=== PATIENT | female | born 1980 | race Caucasian/White ===

== ENCOUNTER 2017-02-27 08:51 | Emergency (ER) | payer OTHER ==
[2017-02-27 09:03] VITALS: BP 127/78; PULSE 58; TEMP 98.1; BMI 27.7
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
== END 2017-02-27 10:25 | disposition home or self-care (01) ==
LOC: JERFT 08:51
DX: S63.502A Unspecified sprain of left wrist, initial encounter (principal); S64.02XA Injury of ulnar nerve at wrist and hand level of left arm, initial encounter; Y04.2XXA Assault by strike against or bumped into by another person, initial encounter; Y93.F9 Activity, other caregiving; Y92.230 Patient room in hospital as the place of occurrence of the external cause; Y99.0 Civilian activity done for income or pay; Y07.9 Unspecified perpetrator of maltreatment and neglect
CPT/HCPCS: 73110-TC-LT; 99281-25

== ENCOUNTER 2019-04-19 16:47 | Emergency (ER) | payer OTHER ==
[2019-04-19 16:57] VITALS: BP 105/54; PULSE 64; TEMP 98.2; BMI 29.7
[2019-04-19 18:03] LABS: BASO % 0.5 % (0-2.0); EOS % 2.7 % (0-4.5); HEMATOCRIT 38.2 % (32.4-45.2); MCH 30.8 pg (25.7-33.7); MCHC 34.1 g/dl (32.0-36.0); MEAN CELL VOLUME 90.3 fl (80-96); MEAN PLT VOLUME 6.8 fl (7.5-11.1); MONO % 8.8 % (3.8-10.2); PLATELET COUNT 320 K/MM3 (134-434); RBC 4.23 M/mm3 (3.60-5.2); RDW 12.7 % (11.6-15.6); WHITE BLOOD COUNT 10.9 K/mm3 (4.0-10.0)
[2019-04-19] MEDS ORDERED: ERYTHROMYCIN 0.5% OPHTHALMIC OINTMENT 3.5 GM TUBE ONE (18:13)
[2019-04-19 18:29] LABS: URIC ACID 4.2 mg/dL (2.6-7.2)
[2019-04-19 18:30] LABS: ALBUMIN 4.1 g/dl (3.4-5.0); BILIRUBIN,TOTAL 0.4 mg/dL (0.2-1); BLOOD UREA NITROGEN 13.7 mg/dL (7-18); CALCIUM 9.3 mg/dL (8.5-10.1); CREATININE 0.7 mg/dL (0.55-1.3)
[2019-04-19 18:31] LABS: PHOSPHOROUS 3.7 mg/dL (2.5-4.9)
--- NOTE | 2019-04-19 18:38 | PDOC ---
History of Present Illness - General Chief Complaint: Blood/Body Fluid Exposure SJR Stated Complaint: Blood/Body Fluid Exposure SJR Time Seen by Provider: 04/19/19 17:03 History Source: Patient Exam Limitations: No Limitations Past History - Travel Traveled outside of the country in the last 30 days: No Close contact w/someone who was outside of country & ill: No - Past Medical History Allergies/Adverse Reactions: Allergies Allergy/AdvReac Type Severity Reaction Status Date / Time No Known Allergies Allergy Verified 04/19/19 16:57 Home Medications: Ambulatory Orders NK [No Known Home Medication] 02/27/17 Asthma: Yes COPD: No - Immunization History Immunization Up to Date: Yes - Psycho Social/Smoking Cessation Hx Smoking History: Never smoked Have you smoked in the past 12 months: No Hx Alcohol Use: No Drug/Substance Use Hx: No Substance Use Type: None Review of Systems - Review of Systems Able to Perform ROS?: Yes Comments:: 04/19/19 19:30 CONSTITUTIONAL: Absent: fever, chills, diaphoresis, generalized weakness, malaise, loss of appetite HEENT: Present: exposure to body fluids in the eyes Absent: rhinorrhea, nasal congestion, throat pain, throat swelling, difficulty swallowing, mouth swelling , ear pain, eye pain, visual Changes SKIN: Absent: rash, itching, pallor NEUROLOGIC: Absent: headache, focal weakness or paresthesias, dizziness, unsteady gait, seizure, mental status changes, bladder or bowel incontinence PSYCHIATRIC: Absent: anxiety, depression, suicidal or homicidal ideation, hallucinations. Is the patient limited Tongan proficient: No *Physical Exam - Vital Signs Last Vital Signs Temp Pulse Resp BP Pulse Ox 98.2 F 64 18 105/54 L 98 04/19/19 16:55 04/19/19 16:55 04/19/19 16:55 04/19/19 16:55 04/19/19 16:55 - Physical Exam Comments: 04/19/19 19:31 GENERAL: The patient is awake, alert, and fully oriented, in no acute distress. HEAD: Normal with no signs of trauma. EYES: Pupils equal, round and reactive to light, extraocular movements intact, sclera anicteric, conjunctiva clear. EXTREMITIES: Normal range of motion, no edema. NEUROLOGICAL: Normal speech, normal gait. PSYCH: Normal mood, normal affect. SKIN: Warm, Dry, normal turgor, no rashes or lesions noted. ED Treatment Course - LABORATORY CBC & Chemistry Diagram: 04/19/19 17:50 04/19/19 17:50 - ADDITIONAL ORDERS Additional order review: 04/19/19 17:50 RBC 4.23 MCV 90.3 MCHC 34.1 RDW 12.7 MPV 6.8 L Neutrophils % 55.0 Lymphocytes % 33.0 Monocytes % 8.8 Eosinophils % 2.7 Basophils % 0.5 Medical Decision Making - Medical Decision Making 04/19/19 19:31 Patient is a 39-year-old female no past medical history who works as an OR nurse , presents to the ER after getting exposed to body fluids. She states she was working in cystoscopy when she got fluid from the cystoscopy tubing in her eye. She notes that there was blood in the urine and she would like to get tested for exposure labs. She flushed her eyes for 10 minutes prior to arrival in the ER. A/P: Body fluid exposure On exam eyes are clear, no conjunctival-itis or foreign bodies noted. Chart review of source patient done. Patient is not on any HIV or hepatitis C meds. Exposure labs drawn. Patient is HIV negative. Erythromycin ointment placed for dirty urine Discharge home I discussed the physical exam findings, ancillary test results and final diagnoses with the patient. I answered all of the patient's questions. The patient was satisfied with the care received and felt comfortable with the discharge plan and treatment plan. The Patient agrees to follow up with the primary care physician/specialist within 24-72 hours. Return precautions were given. Discharge - Discharge Information Problems reviewed: Yes Clinical Impression/Diagnosis: Exposure to blood or body fluid Condition: Stable Disposition: HOME - Admission No - Follow up/Referral Referrals: Pallavi Alvarado [Primary Care Provider] - - Patient Discharge Instructions Patient Printed Discharge Instructions: How to Handle Body Fluid Exposure -- Healthcare Worker Additional Instructions: 04/19/19 1. As discussed, a screening test for the HIV virus was performed today. Your HIV test is Negative (normal). 2. As discussed, if you engaged in high risk-behavior in the three (3) months prior to this test, you could still potentially be at risk and you will need to be re-tested. 3. As discussed, avoid any high risk behavior (such as unprotected sex or needle-sharing) in the future to minimize the chances of jarrod HIV. - Post Discharge Activity Work/Back to School Note: Back to Work
== END 2019-04-19 18:16 | disposition home or self-care (01) ==
LOC: JERFT 16:47
DX: Z77.21 Contact with and (suspected) exposure to potentially hazardous body fluids (principal); X58.XXXA Exposure to other specified factors, initial encounter; Y93.89 Activity, other specified; Y92.234 Operating room of hospital as the place of occurrence of the external cause; Y99.0 Civilian activity done for income or pay; Z87.09 Personal history of other diseases of the respiratory system
CPT/HCPCS: 36415; 80053; 82465; 82977; 83615; 84100; 84478; 84550; 85025; 86317; 86704; 86706; 86803; 87340; 87389; 99282-25

== ENCOUNTER 2019-06-03 07:18 | Emergency (ER) | payer OTHER ==
[2019-06-03 08:00] VITALS: BMI 28.1
--- NOTE | 2019-06-03 08:03 | PDOC ---
History of Present Illness - General Chief Complaint: Chest Pain Stated Complaint: CHEST PAIN Time Seen by Provider: 06/03/19 08:03 Past History - Past Medical History Allergies/Adverse Reactions: Allergies Allergy/AdvReac Type Severity Reaction Status Date / Time No Known Allergies Allergy Verified 06/03/19 07:55 Home Medications: Ambulatory Orders NK [No Known Home Medication] 02/27/17 Asthma: Yes COPD: No - Immunization History Immunization Up to Date: Yes - Psycho Social/Smoking Cessation Hx Smoking History: Unknown if ever smoked Have you smoked in the past 12 months: No Hx Alcohol Use: No Drug/Substance Use Hx: No Substance Use Type: None *Physical Exam - Vital Signs Last Vital Signs Temp Pulse Resp BP Pulse Ox 97.9 F 73 16 116/75 100 06/03/19 07:20 06/03/19 07:20 06/03/19 07:20 06/03/19 07:20 06/03/19 07:20 Discharge - Follow up/Referral Referrals: Pallavi Alvarado [Primary Care Provider] - - Patient Discharge Instructions - Post Discharge Activity
[2019-06-03 08:12] VITALS: BP 104/75; PULSE 70; TEMP 98
--- NOTE | 2019-06-03 08:24 | PDOC ---
History of Present Illness - General Chief Complaint: Chest Pain Stated Complaint: CHEST PAIN Time Seen by Provider: 06/03/19 08:03 History Source: Patient Exam Limitations: No Limitations - History of Present Illness Initial Comments: 06/03/19 08:17 HPI: 39yo F with PMH Asthma, Crohns disease, costochondritis, presenting with chest pain since 6AM. Patient reports sudden onset left sided chest pain with slight upward radiation, constant for 1.5 hours with spontaneous resolution as patient arrived in the ED, denies associate SOB, nausea, vomiting. Onset occurred while patient was getting ready for work - she denies any exertional component. Patient did not try any medication at home but was given sodium citrate by a provider at work before presentation. Reports a cough 1-2 weeks ago , since resolved. Does report prior chest pain, localized to sternum and diagnosed as costochondritis. No fevers, chills, recent illness. Denies family history of PA. Never smoker, no HTN, no DM, no prior cardiac problems diagnosed. All: NKDA Meds: Albuterol, Mesalamine 4.9 daily PMH: As above PSH: Remote wrist and Breast reduction SHx: no smoking / ETOH / illicits Past History - Past Medical History Allergies/Adverse Reactions: Allergies Allergy/AdvReac Type Severity Reaction Status Date / Time No Known Allergies Allergy Verified 06/03/19 07:55 Home Medications: Ambulatory Orders Albuterol Sulfate [Proventil Hfa] 6.7 gm IH TID 06/03/19 Mesalamine 4.8 gm PO DAILY 06/03/19 Asthma: Yes COPD: No - Immunization History Immunization Up to Date: Yes - Psycho Social/Smoking Cessation Hx Smoking History: Unknown if ever smoked Have you smoked in the past 12 months: No Information on smoking cessation initiated: No Hx Alcohol Use: No Drug/Substance Use Hx: No Substance Use Type: None Review of Systems - Review of Systems Able to Perform ROS?: Yes Is the patient limited Japanese proficient: Yes Constitutional: No: Chills, Diaphoresis, Fever HEENTM: No: Recent change in vision, Nose Congestion, Throat Pain Respiratory: No: Cough, Shortness of Breath, Wheezing Cardiac (ROS): Yes: See HPI, Chest Pain. No: Edema, Irregular Heart Rate, Chest Tightness ABD/GI: No: Constipated, Diarrhea, Nausea, Vomiting : No: Burning, Dysuria, Discharge, Frequency Musculoskeletal: No: Muscle Pain, Muscle Weakness Integumentary: No: Bruising, Erythema, Rash Neurological: No: Headache, Numbness, Tingling, Weakness Hematologic/Lymphatic: No: Anemia, Blood Clots, Easy Bleeding All Other Systems: Reviewed and Negative *Physical Exam - Vital Signs Last Vital Signs Temp Pulse Resp BP Pulse Ox 98 F 70 18 104/75 100 06/03/19 08:00 06/03/19 08:00 06/03/19 08:00 06/03/19 08:00 06/03/19 08:00 - Physical Exam 06/03/19 08:22 Vitals reviewed, AFVSS GEN: Well appearing, NAD, comfortable. AAOx3. HEENT: NC/AT, EOMI, PERRLA. No facial asymmetry. Moist mucous membranes. Normal voice. Supple neck w/ FROM. CV: S1/S2, RRR, no m/r/g appreciated, non-tender chest wall LUNG: CTAB, no wheezes, crackles, rales, rhonchi. GI: Soft, ndnt, +BS, no guarding, no rebound. No masses. Neg CVAT b/l. EXTREMITIES: 2+ distal pulses. No LE edema. No obvious deformities of all extremities. SKIN: Warm, dry, no rashes evident. PSYCH: Normal mood and affect. NEURO: Moving all extremities well. CN grossly intact. Heart Score/ECG Review - History History: Slightly suspicious - Electrocardiogram EKG: Normal - Age Age: </= 45 - Risk Factors Based on the list above the patient has:: No risk factors known - Troponin Troponin: </= normal limit - Score Heart Score - Total: 0 ED Treatment Course - LABORATORY CBC & Chemistry Diagram: 06/03/19 08:30 06/03/19 08:30 Medical Decision Making - Medical Decision Making 06/03/19 08:20 39yo F with no significant PMH with atypical chest pain for 1 hour, resolved, without risk factors, HEART Score 0. Patient asymptomatic with stable vitals, normal exam at time of interview. Will obtain troponin x1 and reassess. - CBC, CMP, Cardiac Profile, UPreg - CXR, EKG - EKBPM, NSR, normal axis, normal intervals, no ischemic changes, normal EKG 06/03/19 10:37 - CBC, CMP unremarkable - Initial troponin negative - CXR without acute pathology - U preg pending Dispo: Home 06/03/19 11:58 - negative - Second troponin pending 06/03/19 12:13 - Troponin negative Discharge Discharge - Discharge Information Problems reviewed: Yes Clinical Impression/Diagnosis: Atypical chest pain Condition: Improved Disposition: HOME - Admission No - Follow up/Referral Referrals: Pallavi Alvarado [Primary Care Provider] - - Patient Discharge Instructions Patient Printed Discharge Instructions: DI for Atypical Chest Pain Additional Instructions: Please return for any new or concerning symptoms. - Post Discharge Activity
[2019-06-03 08:43] LABS: BASO % 0.5 % (0-2.0); EOS % 3.8 % (0-4.5); HEMATOCRIT 37.2 % (32.4-45.2); HEMOGLOBIN 12.7 GM/dL (10.7-15.3); MCH 30.4 pg (25.7-33.7); MEAN CELL VOLUME 89.2 fl (80-96); MEAN PLT VOLUME 6.8 fl (7.5-11.1); MONO % 10.5 % (3.8-10.2); NEUT % 56.2 % (42.8-82.8); PLATELET COUNT 302 K/MM3 (134-434); RBC 4.17 M/mm3 (3.60-5.2); RDW 12.8 % (11.6-15.6)
--- NOTE | 2019-06-03 08:54 | PDOC ---
Attending Attestation - Resident Resident Name: Malcom Watt - ED Attending Attestation I have performed the following: I have examined & evaluated the patient, The case was reviewed & discussed with the resident, I agree w/resident's findings & plan, Exceptions are as noted - HPI HPI: 06/03/19 08:51 Ms Nicholson is a 39 yo F who presents to the ER with a complaint of chest pain She has a h/o Asthma, Crohns disease, costochondritis and reports chest pain since 6AM. chest pain began suddenly, located in the left chest, radiation to the upper chest Pain has been constant for the past 1.5 hours but resolved and she no longer has chest pain Pt denies associate SOB, nausea, vomiting. Reports a cough 1-2 weeks ago, since resolved. Never smoker, no HTN, no DM, no prior cardiac problems diagnosed. All: NKDA Meds: Albuterol, Mesalamine 4.9 daily PMH: As above PSH: Remote wrist and Breast reduction SHx: no smoking / ETOH / illicits - Physicial Exam PE: 06/03/19 08:53 GENERAL: The patient is in no acute distress. ENT: Ears normal, nares patent, oropharynx clear without exudates. Moist mucous membranes. NECK: Normal range of motion, supple LUNGS: Breath sounds equal, clear to auscultation bilaterally. No wheezes, and no crackles. HEART:Regular rate and rhythm, normal S1 and S2 without murmur, rub or gallop. ABDOMEN: Soft, nontender, normoactive bowel sounds. EXTREMITIES: Normal range of motion, no edema. NEUROLOGICAL: Cranial nerves II through XII grossly intact. Normal speech. No focal neurological deficits. SKIN: Warm, Dry, normal turgor, no rashes or lesions noted. - Medical Decision Making 06/03/19 08:54 Differential includes cardiac ischemia, pe, asthma exacerbation, pneumonia, pneumothorax, pleural effusion, costochondritis, pericarditis, GERD. Pt low risk wells Chest pain has resolved and is not reproducible to suggest costochondritis Chest pain does not worsen with forward/backward position No cough or sputum to suggest pneumonia EKG: Twelve-lead EKG was performed and reviewed by me. There is normal sinus rhythm with a normal rate. The axis is normal. The intervals are normal. There are no ST or T wave abnormalities. Impression: Normal twelve-lead EKG 06/03/19 10:17 Laboratory Tests 06/03/19 06/03/19 08:30 08:30 Hgb 12.7 Hct 37.2 BUN 11.4 Creatinine 0.7 Creatine Kinase 106 Troponin I < 0.02 CXR: 06/03/19 10:37 Low risk wells, PERC negative Will repeat trop Laboratory Tests 06/03/19 11:18 Creatine Kinase 104 Troponin I < 0.02
[2019-06-03 09:11] LABS: ALBUMIN 3.4 g/dl (3.4-5.0); ALK PHOS 71 U/L (45-117); ANION GAP 7 MMOL/L (8-16); BILIRUBIN,TOTAL 0.3 mg/dL (0.2-1); BLOOD UREA NITROGEN 11.4 mg/dL (7-18); CALCIUM 8.5 mg/dL (8.5-10.1); CHLORIDE 111 mmol/L (98-107); CO2 23 mmol/L (21-32); CREATININE 0.7 mg/dL (0.55-1.3); GLUCOSE,RANDOM 106 mg/dL (74-106); POTASSIUM 4.1 mmol/L (3.5-5.1); SGOT/AST 18 U/L (15-37); SGPT/ALT 29 U/L (13-61); SODIUM 141 mmol/L (136-145); TOT PROT 7.3 g/dl (6.4-8.2)
--- NOTE | 2019-06-03 10:04 | EKG ---
Test Reason : Blood Pressure : / mmHG Vent. Rate : 072 BPM Atrial Rate : 072 BPM P-R Int : 154 ms QRS Dur : 068 ms QT Int : 388 ms P-R-T Axes : 064 049 038 degrees QTc Int : 424 ms NORMAL SINUS RHYTHM NORMAL ECG NO PREVIOUS ECGS AVAILABLE Confirmed by TRACY MADRID MD ([id number]) on 06/03/2019 10:04:02 AM Referred By: Confirmed By:TRACY MADRID MD
== END 2019-06-03 13:01 | disposition home or self-care (01) ==
LOC: JER 07:18
DX: R07.89 Other chest pain (principal); Z87.09 Personal history of other diseases of the respiratory system; Z87.39 Personal history of other diseases of the musculoskeletal system and connective tissue; Z87.19 Personal history of other diseases of the digestive system
CPT/HCPCS: 36415; 71045-TC-FY; 80053; 82550; 84484; 84703; 85025; 93005; 93010; 99284-25

== ENCOUNTER 2022-07-14 13:29 | Emergency (ER) | payer BC, OTHER ==
[2022-07-14 13:40] VITALS: BP 123/78; PULSE 72; RESP 18; TEMP 98.1; BMI 28.1
[2022-07-14] MEDS ORDERED: DEXAMETHASONE SOD PHOSPHATE 10 MG/1 ML VIAL IM ONE (14:13)
[2022-07-14] MEDS ORDERED: LORATADINE 10 MG TABLET PO ONE (14:14)
[2022-07-14] MEDS ORDERED: DEXAMETHASONE SOD PHOSPHATE 10 MG/1 ML VIAL ONE (14:14)
[2022-07-14] MEDS ORDERED: FAMOTIDINE 20 MG TABLET PO ONE (14:14)
[2022-07-14] MEDS ORDERED: FAMOTIDINE 20 MG TABLET ONE (14:17)
[2022-07-14] MEDS ORDERED: LORATADINE 10 MG TABLET ONE (14:17)
== END 2022-07-14 14:34 | disposition home or self-care (01) ==
LOC: JERFT 13:29
PROC: 3E0233Z Introduction of Anti-inflammatory into Muscle, Percutaneous Approach (ICD-10-PCS; principal; 2022-07-14)
DX: T78.40XA Allergy, unspecified, initial encounter (principal)
CPT/HCPCS: 99284-25; J1100